=== PATIENT | female | born 1965 | race African-American/Black ===

== ENCOUNTER 2017-01-06 19:31 | Emergency (ER) | payer MEDICAID, OTHER ==
[~2017-01-06] VITALS: Ht 165.1 cm; Wt 63.0 kg
[~2017-01-06 19:31] MED LIST: HYDR12.529 PO
[2017-01-06] MEDS ORDERED: ACETAMINOPHEN 500MG TABLET PO ONE (21:00)
[2017-01-06 21:02] LABS: BASOPHILS % 0.4 % (0.0-2.0); EOSINOPHILS % 1.1 % (0.0-5.0); HEMATOCRIT. 48.2 % (36.0-48.0); HEMOGLOBIN. 16.3 g/dL (12.0-16.0); LYMPHOCYTES % 13.7 % (20.0-50.0); MEAN CORPUSCULAR HEMOGLOBIN 31.2 pg (28.0-32.0); MEAN CORPUSCULAR VOLUME 92.3 fL (81.0-99.0); MEAN PLATELET VOLUME 8.3 fl (7.4-10.4); NEUTROPHILS % 70.8 % (40.0-76.0); PLATELET 261 x1000/uL (130-400); RED BLOOD CELL COUNT 5.22 mill/uL (4.2-5.4); RED CELL DISTRIBUTION WIDTH 17.9 % (11.6-14.6)
[2017-01-06 21:03] LABS: CHLORIDE 105 mEq/L (98-107)
[2017-01-06 21:06] LABS: CARBON DIOXIDE 27 mEq/L (21-32)
[2017-01-06 22:09] VITALS: BP 148/93
== END 2017-01-06 22:09 | disposition home or self-care (01) ==
LOC: ER 20:01
DX: J90 Pleural effusion, not elsewhere classified (principal); I10 Essential (primary) hypertension; F41.9 Anxiety disorder, unspecified; J45.909 Unspecified asthma, uncomplicated; Z88.0 Allergy status to penicillin; Z90.10 Acquired absence of unspecified breast and nipple; Z85.3 Personal history of malignant neoplasm of breast
CPT/HCPCS: 36415; 71010; 80053; 85025; 99285

== ENCOUNTER 2017-09-19 14:21 | Inpatient (IN) | payer MEDICAID ==
[~2017-09-19] VITALS: Ht 160 cm; Wt 57.2 kg
[2017-09-19 15:13] LABS: EOSINOPHILS % 1.7 % (0.0-5.0); MEAN CORPUSCULAR HEMOGLOBIN 29.3 pg (28.0-32.0); MEAN CORPUSCULAR VOLUME 87.9 fL (81.0-99.0); MEAN PLATELET VOLUME 7.6 fl (7.4-10.4); MONOCYTES % 8.4 % (2.0-8.0); NEUTROPHILS % 69.9 % (40.0-76.0); PLATELET 360 x1000/uL (130-400); RED BLOOD CELL COUNT 5.46 mill/uL (4.2-5.4); RED CELL DISTRIBUTION WIDTH 16.3 % (11.6-14.6)
[2017-09-19 15:19] LABS: CHLORIDE 102 mEq/L (98-107)
[2017-09-19 15:20] LABS: INR 1.1; PROTHROMBIN TIME 11.1 sec (9.4-11.6)
[2017-09-19 15:43] LABS: CLARITY URINE CLEAR (CLEAR); COLOR URINE YELLOW (YELLOW); KETONES URINE NEGATIVE (NEGATIVE); LEUKOCYTE ESTERASE URINE 3+ (NEGATIVE); NITRITE URINE NEGATIVE (NEGATIVE); OCCULT BLOOD URINE TRACE (NEGATIVE); PROTEIN URINE NEGATIVE (NEGATIVE); SPECIFIC GRAVITY URINE 1.022 (1.005-1.030); UROBILINOGEN URINE 0.2 E.U./dL (0.2-1.0)
[2017-09-19] MEDS ORDERED: MORPHINE SULFATE 4 MG/ML CPJ (NOT FOR IM USE) IV STA (18:07)
[2017-09-19] MEDS ORDERED: ONDANSETRON HCL 4MG/2ML VIAL IV STA (18:07)
[2017-09-19] MEDS ORDERED: KETOROLAC 30MG/ML VIAL IV STA (18:07)
[2017-09-19] MEDS ORDERED: IPRATROPIUM/ALBUTEROL 0.5-3(2.5)MG/3ML NEB HHN ONE (18:15)
[2017-09-19] MEDS ORDERED: ONDANSETRON HCL 4MG/2ML VIAL IV ONE (20:15)
[2017-09-19] MEDS ORDERED: MORPHINE SULFATE 4 MG/ML CPJ (NOT FOR IM USE) IV ONE (20:15)
[2017-09-19] MEDS ORDERED: LEVOFLOXACIN 500MG PREMIX 100 ML IV ONE (20:30)
[2017-09-19 22:15] VITALS: BP 108/67
[2017-09-19 22:30] VITALS: BP 154/99
[2017-09-20] VITALS: BP 147/73
[2017-09-20] MEDS ORDERED: LORAZEPAM 0.5MG TABLET PO PRN (00:45)
[2017-09-20] MEDS: MORPHINE SULFATE 4 MG/ML CPJ (NOT FOR IM USE) IV PRN ×7 (01:33→23:39)
[2017-09-20 04:00] VITALS: BP 144/90
[2017-09-20 06:33] LABS: CHLORIDE 104 mEq/L (98-107)
[2017-09-20 06:40] LABS: BASOPHILS % 1.2 % (0.0-2.0); HEMATOCRIT. 45.2 % (36.0-48.0); HEMOGLOBIN. 15.3 g/dL (12.0-16.0); LYMPHOCYTES % 17.7 % (20.0-50.0); MEAN CORPUSCULAR HEMOGLOBIN 29.9 pg (28.0-32.0); MEAN CORPUSCULAR VOLUME 88.3 fL (81.0-99.0); MEAN PLATELET VOLUME 7.9 fl (7.4-10.4); MONOCYTES % 11.3 % (2.0-8.0); NEUTROPHILS % 67.8 % (40.0-76.0); PLATELET 320 x1000/uL (130-400); RED BLOOD CELL COUNT 5.11 mill/uL (4.2-5.4); RED CELL DISTRIBUTION WIDTH 16.3 % (11.6-14.6)
[2017-09-20] MEDS: ENOXAPARIN 60MG/0.6ML SYR SUBCUT SCH ×2 (06:55→18:49)
[2017-09-20 08:00] VITALS: BP 160/95
[2017-09-20 12:00] VITALS: BP 142/83
[2017-09-20] MEDS ORDERED: IPRATROPIUM/ALBUTEROL 0.5-3(2.5)MG/3ML NEB HHN PRN (15:45)
[2017-09-20 16:00] VITALS: BP 134/79
[2017-09-20] MEDS ORDERED: BISACODYL 5MG TABLET PO PRN (16:15)
[2017-09-20] MEDS: DOCUSATE SODIUM 250MG CAPSULE PO SCH (16:34)
[2017-09-20] MEDS: BENZONATATE 100MG CAPSULE PO SCH (16:42)
[2017-09-20 17:33] LABS: *COCAINE SCREEN URINE PRESUMTIVE POSITIVE (NEGATIVE); METHADONE URINE SCREEN NEGATIVE (NEGATIVE); OPIATES URINE SCREEN PRESUMTIVE POSITIVE (NEGATIVE)
[2017-09-20 17:34] LABS: *AMPHETAMINES SCREEN URINE NEGATIVE (NEGATIVE); *BARBITURATES SCREEN URINE NEGATIVE (NEGATIVE); *BENZODIAZEPINES SCREEN URINE NEGATIVE (NEGATIVE); CANNABINOID URINE SCREEN NEGATIVE (NEGATIVE); PHENCYCLIDINE URINE SCREEN NEGATIVE (NEGATIVE)
[2017-09-20] MEDS: NICOTINE 14MG PATCH TD SCH (18:00)
[2017-09-20] MEDS: CEFTRIAXONE 1 G PREMIX 50 ML IV SCH (18:48)
[2017-09-20 20:00] VITALS: BP 138/86
[2017-09-20] MEDS: IPRATROPIUM/ALBUTEROL 0.5-3(2.5)MG/3ML NEB HHN SCH (20:22)
[2017-09-21] VITALS (7 sets, daily range): BP systolic 116–144; BP diastolic 75–90
[2017-09-21] MEDS: IPRATROPIUM/ALBUTEROL 0.5-3(2.5)MG/3ML NEB HHN SCH ×4 (01:49→20:04)
[2017-09-21] MEDS: CLONIDINE 0.1MG TABLET PO SCH ×3 (04:37→13:35)
[2017-09-21] MEDS: LISINOPRIL 5MG TABLET PO SCH ×2 (04:38→08:49)
[2017-09-21] MEDS: MORPHINE SULFATE 4 MG/ML CPJ (NOT FOR IM USE) IV PRN ×4 (04:39→13:34)
[2017-09-21] MEDS: HYDROCHLOROTHIAZIDE 12.5MG CAPSULE PO SCH ×2 (04:47→08:49)
[2017-09-21] MEDS: ENOXAPARIN 60MG/0.6ML SYR SUBCUT SCH ×2 (06:23→18:55)
[2017-09-21] MEDS: BENZONATATE 100MG CAPSULE PO SCH ×2 (08:46→13:00)
[2017-09-21] MEDS: NICOTINE 14MG PATCH TD SCH (08:48)
[2017-09-21] MEDS: DOCUSATE SODIUM 250MG CAPSULE PO SCH (08:49)
[2017-09-21] MEDS ORDERED: LISI-186 PO (15:55)
[2017-09-21] MEDS ORDERED: NICO-681 TD (15:55)
[2017-09-21] MEDS ORDERED: LORA-249 PO (15:55)
[2017-09-21] MEDS ORDERED: KETOROLAC 10MG TABLET PO PRN (16:00)
[2017-09-21] MEDS: CEFTRIAXONE 1 G PREMIX 50 ML IV SCH (18:54)
[2017-09-21] MEDS ORDERED: SULFAMETHOXAZOLE/TRIMETHOPRIM 400/80MG TAB PO SCH (21:00)
== END 2017-09-21 20:45 | disposition home or self-care (01) | DRG 720 ==
LOC: ER 18:54 → 6EST 20:31 → EDBEDREQ 20:36 → EDBEDREQTM 20:36 → EDBEDREQSVC 20:36 → ENRESERV 20:47 → 6EST 23:41
PROVIDERS: ADMIT Internal Medicine; ATTEND Internal Medicine
DX: A41.9 Sepsis, unspecified organism (principal); J96.00 Acute respiratory failure, unspecified whether with hypoxia or hypercapnia; C78.7 Secondary malignant neoplasm of liver and intrahepatic bile duct; C50.919 Malignant neoplasm of unspecified site of unspecified female breast; C78.89 Secondary malignant neoplasm of other digestive organs; J90 Pleural effusion, not elsewhere classified; N39.0 Urinary tract infection, site not specified; J45.909 Unspecified asthma, uncomplicated; K57.30 Diverticulosis of large intestine without perforation or abscess without bleeding; F17.210 Nicotine dependence, cigarettes, uncomplicated; G89.29 Other chronic pain; I10 Essential (primary) hypertension; K59.00 Constipation, unspecified; Z60.2 Problems related to living alone; F41.9 Anxiety disorder, unspecified; Z82.49 Family history of ischemic heart disease and other diseases of the circulatory system; Z90.12 Acquired absence of left breast and nipple; Z92.3 Personal history of irradiation; Z92.21 Personal history of antineoplastic chemotherapy; Z80.8 Family history of malignant neoplasm of other organs or systems; Z79.899 Other long term (current) drug therapy; Z71.6 Tobacco abuse counseling; Z88.0 Allergy status to penicillin
CPT/HCPCS: 36415; 71045; 74176; 80048; 80053; 80305; 81003; 83605; 83690; 83880; 84484; 85025; 85610; 87040; 87086; 93005; 94640; 96365; 96375; 96376; 99285; 99406; J0696; J1650; J1885; J1956; J2270; J2405; J7040; J7620